=== PATIENT | female | born 1970 | race Caucasian/White ===

== ENCOUNTER 2019-11-09 08:38 | Inpatient (IN) | payer SELFPAY ==
[2019-11-09] VITALS (12 sets, daily range): BP systolic 89–118; BP diastolic 47–82
[~2019-11-09] VITALS: Ht 162.1 cm; Wt 68.0 kg
[2019-11-09] MEDS ORDERED: LORazepam INJ 2 MG/ML (ATIVAN) VIAL IM ONE (09:00)
[2019-11-09] MEDS ORDERED: OLANZapine 5 MG ODT (ZyPREXA ZYDIS) SL ONE (09:00)
[2019-11-09] MEDS ORDERED: NS IV 1000 ML 1,000 ML IV SCH ×2 (09:22→12:45)
[2019-11-09] MEDS ORDERED: LORazepam INJ 2 MG/ML (ATIVAN) VIAL IVP ONE ×2 (09:30→11:00)
[2019-11-09] MEDS ORDERED: ONDANSETRON 4 MG/2 ML (SDV) Z0FRAN IVP ONE (09:30)
--- NOTE | 2019-11-09 10:17 | Diagnostic Imaging Report ---
INDICATION: Meth use. TIME OF EXAM: 9:48 AM. COMPARISON: No prior studies are available for comparison. FINDINGS: The heart size is normal. The pulmonary vascularity is unremarkable. The lungs are clear. No infiltrate, effusion, or pneumothorax is detected. IMPRESSION: No acute cardiopulmonary process is detected. Dictated by: Dictated on workstation # [id number]
--- NOTE | 2019-11-09 10:26 | NUR ---
BLOOD RESENT LAB REPORTS NEVER GO DRAWN ON ADMIT
[2019-11-09 10:30] LABS: BASOPHILS % (AUTO) 0 % (0-10); EOSINOPHILS % (AUTO) 0 % (0-10); HEMATOCRIT 33 % (35-52); HEMOGLOBIN 11.1 G/DL (11.5-16.0); LYMPHOCYTES % (AUTO) 11 % (12-44); MEAN CORPUSCULAR HEMOGLOBIN 26 PG (25-34); MEAN CORPUSCULAR HGB CONC 34 G/DL (32-36); MEAN CORPUSCULAR VOLUME 77 FL (80-99); MEAN PLATELET VOLUME 10.4 FL (7.4-10.4); MONOCYTES # (AUTO) 2.4 X 10^3 (0.0-1.0); MONOCYTES % (AUTO) 13 % (0-12); NEUTROPHILS # (AUTO) 13.9 X 10^3 (1.8-7.8); NEUTROPHILS % (AUTO) 76 % (42-75); PLATELET COUNT 390 10^3/uL (130-400); RED CELL DISTRIBUTION WIDTH 14.7 % (10.0-14.5); WHITE BLOOD COUNT 18.3 10^3/uL (4.3-11.0)
--- NOTE | 2019-11-09 10:40 | NUR ---
PATIENT APPEARS TO BE RESTING HR DOWN TO 90'S
--- NOTE | 2019-11-09 10:42 | NUR ---
HOME MEDS KEEP AT DESK AND TILL ADMIT WILL SENT WITH PATIENT.
[2019-11-09 10:44] LABS: CHLORIDE 104 MMOL/L (98-107); POTASSIUM 3.7 MMOL/L (3.6-5.0); SODIUM 136 MMOL/L (135-145)
[2019-11-09 10:45] LABS: ALBUMIN 4.5 GM/DL (3.2-4.5)
[2019-11-09 10:46] LABS: CALCIUM 9.8 MG/DL (8.5-10.1)
[2019-11-09 10:47] LABS: GLUCOSE 92 MG/DL (70-105)
[2019-11-09 10:48] LABS: CARBON DIOXIDE 18 MMOL/L (21-32); TOTAL PROTEIN 7.5 GM/DL (6.4-8.2)
[2019-11-09 10:49] LABS: BILIRUBIN,TOTAL 0.8 MG/DL (0.1-1.0)
[2019-11-09 10:51] LABS: ALKALINE PHOSPHATASE 79 U/L (40-136); CREATININE SERUM 1.21 MG/DL (0.60-1.30); GFR ESTIMATED 48
[2019-11-09 10:52] LABS: BUN/CREATININE RATIO 26
[2019-11-09 10:53] LABS: ACETAMINOPHEN < 10 UG/ML (10-30)
[2019-11-09 10:54] LABS: ALANINE AMINOTRANSFERASE 41 U/L (0-55); CREATINE KINASE 1528 U/L (29-168); SALICYLATE < 5.0 MG/DL (5.0-20.0)
[2019-11-09 10:59] LABS: BAND NEUTROPHILS 0 %; BASOPHILS % (MANUAL) 1 %; EOSINOPHILS % (MANUAL) 0 %; LYMPHOCYTES % (MANUAL) 15 %; MICROCYTOSIS SLIGHT; MONOCYTES % (MANUAL) 2 %; NEUTROPHILS % (MANUAL) 82 %
[2019-11-09] MEDS ORDERED: LACTATED RINGERS 1,000 ML IV ONE (11:11)
--- NOTE | 2019-11-09 11:32 | NUR ---
PATIENT DISCONNECTED IV CRAWLED OUT OF BED AND FOUND WALKING NAKED IN ROOM
--- NOTE | 2019-11-09 12:03 | ED Psychosocial ---
General Chief Complaint: Substance Abuse Stated Complaint: PSYCH Nursing Triage Note: AMB TO ROOM 8 ACCCOMPIED BY EMS. EMS REPORT THAT [facility] WAS CALLED BY DAUGHTER BECAUSE PATIENT WAS TWEEKING. PATIENT REPORTS THAT SHE TOOK A LOT OF ADDERALL SEVERAL DAY'S AGO AND METH YESTERDAY PATIENT REPORTS IM TWEEKING. SAID HER BOYFRIEND KICKED HER OUT IN AND DROVE HERE HERE TO HER DAUGHTER'S Source: patient, EMS Exam Limitations: no limitations History of Present Illness Date Seen by Provider: Nov 09, 2019 Time Seen by Provider: 08:43 Initial Comments This 49-year-old woman is brought to the emergency room by EMS with suicidal ideation. She comments to me "I don't deserve for you to care for me. I don't deserve to live. I just want to ." She apparently was dropped off by a male hydroelectric production manager at her mother's house in the area and then EMS was activated there. Patient has rather extreme dystonic movements. She is a very poor historian and exam is very difficult due to her dystonic movements. She has generalized aching and complains of a very dry throat and mouth. She is afebrile. She admits to using "a lot" of Adderall recently and methamphetamine yesterday. She does not inject per her report. She presents a bag of numerous medications prescribed and filled in the [facility]. Allergies and Home Medications Allergies Coded Allergies: chlorzoxazone (Verified Allergy, Unknown, 11/09/19) cyclobenzaprine (Verified Allergy, Unknown, 11/09/19) Patient Home Medication List Home Medication List Reviewed: Yes Review of Systems Constitutional: see HPI EENTM: no symptoms reported Respiratory: no symptoms reported Cardiovascular: no symptoms reported Gastrointestinal: other (gagging) Genitourinary: no symptoms reported : No Musculoskeletal: see HPI Skin: other (scattered bruises and abrasions) Psychiatric/Neurological: See HPI Past Myqfzsl-Rndaji-Xbxwrl Hx Past Med/Social Hx: Reviewed Nursing Past Med/Soc Hx Patient Social History Alcohol Use: Denies Use Recreational Drug Use: Yes (METH ) Smoking Status: Current Everyday Smoker Recent Foreign Travel: No Contact w/Someone Who Travel: No Recent Infectious Disease Expo: No Past Medical History Surgeries: Yes Section Cardiac: Yes High Cholesterol, Hypertension Genitourinary: No Gastrointestinal: No Musculoskeletal: No Endocrine: No HEENT: No Cancer: No Psychosocial: Yes (polysubstance abuse) Physical Exam Vital Signs - First Documented 11/09/19 11/09/19 08:38 12:35 Temp 36.8 Pulse 110 Resp 24 B/P (MAP) 110/86 (94) Pulse Ox 94 O2 Delivery Room Air Capillary Refill : Less Than 3 Seconds Height, Weight, BMI Height: '" Weight: lbs. oz. kg; 25.00 BMI Method: General Appearance: WD/WN, moderate distress HEENT: PERRL/EOMI, other (mucous membranes somewhat dry) Neck: normal inspection Respiratory: lungs clear, normal breath sounds, no respiratory distress Cardiovascular: no edema, no murmur, tachycardia Gastrointestinal: soft; No distended Extremities: no pedal edema, other (scattered bruises and abrasions) Neurologic/Psychiatric: voice teacher II-XII nml as tested, alert, other (moves all 4 extremities equally. Severe dystonic movements from methamphetamines. Patient somewhat confused. Answer some questions appropriately but not others. She is cooperative to the extent she is able) Skin: warm/dry, ecchymosis, rash (folliculitis rash in the buttock region) Progress/Results/Core Measures Results/Orders Lab Results Laboratory Tests Test 11/09/19 10:24 Range/Units White Blood Count 18.3 H 4.3-11.0 10^3/uL Red Blood Count 4.29 L 4.35-5.85 10^6/uL Hemoglobin 11.1 L 11.5-16.0 G/DL Hematocrit 33 L 35-52 % Mean Corpuscular Volume 77 L 80-99 FL Mean Corpuscular Hemoglobin 26 25-34 PG Mean Corpuscular Hemoglobin Concent 34 32-36 G/DL Red Cell Distribution Width 14.7 H 10.0-14.5 % Platelet Count 390 130-400 10^3/uL Mean Platelet Volume 10.4 7.4-10.4 FL Neutrophils (%) (Auto) 76 H 42-75 % Lymphocytes (%) (Auto) 11 L 12-44 % Monocytes (%) (Auto) 13 H 0-12 % Eosinophils (%) (Auto) 0 0-10 % Basophils (%) (Auto) 0 0-10 % Neutrophils # (Auto) 13.9 H 1.8-7.8 X 10^3 Lymphocytes # (Auto) 2.0 1.0-4.0 X 10^3 Monocytes # (Auto) 2.4 H 0.0-1.0 X 10^3 Eosinophils # (Auto) 0.0 0.0-0.3 10^3/uL Basophils # (Auto) 0.0 0.0-0.1 10^3/uL Neutrophils % (Manual) 82 % Lymphocytes % (Manual) 15 % Monocytes % (Manual) 2 % Eosinophils % (Manual) 0 % Basophils % (Manual) 1 % Band Neutrophils 0 % Microcytosis SLIGHT Sodium Level 136 135-145 MMOL/L Potassium Level 3.7 3.6-5.0 MMOL/L Chloride Level 104 98-107 MMOL/L Carbon Dioxide Level 18 L 21-32 MMOL/L Anion Gap 14 5-14 MMOL/L Blood Urea Nitrogen 31 H 7-18 MG/DL Creatinine 1.21 0.60-1.30 MG/DL Estimat Glomerular Filtration Rate 48 BUN/Creatinine Ratio 26 Glucose Level 92 70-105 MG/DL Calcium Level 9.8 8.5-10.1 MG/DL Corrected Calcium 9.4 8.5-10.1 MG/DL Total Bilirubin 0.8 0.1-1.0 MG/DL Aspartate Amino Transf (AST/SGOT) 64 H 5-34 U/L Alanine Aminotransferase (ALT/SGPT) 41 0-55 U/L Alkaline Phosphatase 79 40-136 U/L Total Creatine Kinase 1528 H 29-168 U/L C-Reactive Protein High Sensitivity 2.58 H 0.00-0.50 MG/DL Total Protein 7.5 6.4-8.2 GM/DL Albumin 4.5 3.2-4.5 GM/DL TSH Mcleod Testing 0.47 0.35-4.94 UIU/ML Serum Test, Qualitative NEGATIVE NEGATIVE Salicylates Level < 5.0 L 5.0-20.0 MG/DL Acetaminophen Level < 10 L 10-30 UG/ML Serum Alcohol < 10 <10 MG/DL My Orders Orders - BRANDON SALAZAR MD Ua Culture If Indicated (11/09/19 08:56) Cbc With Automated Diff (11/09/19 08:56) Comprehensive Metabolic Panel (11/09/19 08:56) Alcohol (11/09/19 08:56) Acetaminophen (11/09/19 08:56) Salicylate (11/09/19 08:56) Ed Iv/Invasive Line Start (11/09/19 08:56) Thyroid Analyzer (11/09/19 08:56) Monitor-Rhythm Ecg Trace Only (11/09/19 08:56) Bh Status Checks/Observation Q15M (11/09/19 08:56) Ed Iv/Invasive Line Start (11/09/19 08:56) Creatine Kinase (11/09/19 08:56) Hcg,Qualitative Serum (11/09/19 08:56) Olanzapine Orally Dissolve Tab (Zyprexa (11/09/19 09:00) Lorazepam Injection (Ativan Injection) (11/09/19 09:00) Chest 1 View, Ap/Pa Only (11/09/19 09:21) Ondansetron Injection (Zofran Injectio (11/09/19 09:30) Ns Iv 1000 Ml (Sodium Chloride 0.9%) (11/09/19 09:22) Lorazepam Injection (Ativan Injection) (11/09/19 09:30) Manual Differential (11/09/19 10:24) Lorazepam Injection (Ativan Injection) (11/09/19 11:00) Lactated Ringers (Lr 1000 Ml Iv Solution (11/09/19 11:11) Hs C Reactive Protein (11/09/19 12:23) Medications Given in ED Current Medications Medications Dose Ordered Sig/Shwetha Route Start Time Stop Time Status Last Admin Dose Admin Lactated Ringer's 1,000 ml @ 0 mls/hr Q0M ONCE IV 11/09/19 11:11 11/09/19 11:12 DC 11/09/19 12:15 1,000 MLS/HR Lorazepam 1 mg ONCE ONCE IVP 11/09/19 09:30 11/09/19 09:31 DC 11/09/19 09:32 1 MG Lorazepam 1 mg ONCE ONCE IVP 11/09/19 11:00 11/09/19 11:01 DC 11/09/19 11:05 1 MG Olanzapine 5 mg ONCE ONCE SL 11/09/19 09:00 11/09/19 09:01 DC 11/09/19 09:05 5 MG Ondansetron HCl 8 mg ONCE ONCE IVP 11/09/19 09:30 11/09/19 09:31 DC 11/09/19 09:32 8 MG Vital Signs/I&O 11/09/19 11/09/19 11/09/19 11/09/19 08:38 11:53 12:15 12:35 Temp 36.8 Pulse 110 86 89 100 Resp 24 18 18 22 B/P (MAP) 110/86 (94) 98/56 (70) 91/55 118/82 (94) Pulse Ox 94 96 95 97 O2 Delivery Room Air Room Air Room Air Room Air 11/09/19 11/09/19 11/09/19 11/09/19 12:42 13:00 13:31 14:00 Pulse 88 92 81 Resp 18 18 B/P (MAP) 104/62 (76) 92/61 (71) Pulse Ox 98 100 98 O2 Delivery Room Air Room Air Room Air 11/09/19 11/09/19 11/09/19 11/09/19 15:00 15:59 16:00 16:01 Temp 36.8 Pulse 83 94 Resp 15 36 B/P (MAP) 108/67 (81) 93/60 (71) Pulse Ox 99 100 99 O2 Delivery Room Air Room Air Room Air 11/09/19 11/09/19 17:00 18:00 Pulse 87 85 Resp 16 11 B/P (MAP) 95/63 (74) 89/47 (61) Pulse Ox 97 96 O2 Delivery Room Air Room Air Blood Pressure Mean: 70 Progress Progress Note : Time: 11:50 Progress Note Assessment was difficult due to patient's dystonic movements. She was given Zyprexa 5 mg sublingually. IV was established and she was then given 2 different doses of Ativan 1 mg each. 2 L of IV fluid were ordered to treat the rhabdomyolysis. Patient needs to be admitted with close monitoring due to vieira icidal ideation and erratic behavior/movements. Dr. Montemayor excepts admission. Diagnostic Imaging Diagonstic Imaging: Xray Comments NAME: COLETTE QUAN [facility] REC#: [id number] PT STATUS: ADM IN : 1970 PHYSICIAN: BRANDON SALAZAR MD ADMIT DATE: 11/09/19/ICU Signed Date of Exam:11/09/19 CHEST 1 VIEW, AP/PA ONLY INDICATION: Meth use. TIME OF EXAM: 9:48 AM. COMPARISON: No prior studies are available for comparison. FINDINGS: The heart size is normal. The pulmonary vascularity is unremarkable. The lungs are clear. No infiltrate, effusion, or pneumothorax is detected. IMPRESSION: No acute cardiopulmonary process is detected. Dictated by: Dictated on workstation # [id number] Dict: 11/09/19 1015 Trans: 11/09/19 1544 [id number] Interpreted by: ERYN LUNSFORD MD Electronically signed by: ERYN LUNSFORD MD 11/09/19 1544 Departure Communication (Admissions) Time/Spoke to Admitting Phy: 11:50 Dr. Montemayor Impression Primary Impression: Suicidal ideation Additional Impressions: Rhabdomyolysis Qualified Codes: M62.82 - Rhabdomyolysis Methamphetamine abuse Disposition: 09 ADMITTED INPATIENT Condition: Improved Admissions Decision to Admit Reason: Admit from ER (General) Decision to Admit/Date: Nov 09, 2019 Time/Decision to Admit Time: 08:50 Departure-Patient Inst. Patient Instructions: ALCOHOL AND SUBSTANCE ABUSE BRANDON SALAZAR MD Nov 09, 2019 12:03
[2019-11-09] MEDS ORDERED: ONDANSETRON 4 MG/2 ML (SDV) Z0FRAN IV PRN ×2 (12:45→17:30)
--- OUTSIDE RECORDS SUMMARY | 2019-11-09 13:08 | XMS REPORT | Continuity of Care Document ---
Author Organization Unknown Address Unknown Phone Unavailable Allergies Active Description Code Type Severity Reaction Onset Reported/Identified Relationship to Patient Clinical Status Yes chlorzoxazone [id number] Moises g Allergy Unknown N/A 11/09/2019 Yes cyclobenzaprine [id number] D rug Allergy Unknown N/A 11/09/2019 Medications There is no data. Problems There is no data. Procedures There is no data. Results Test Result Range Complete blood count (CBC) with automate d white blood cell (WBC) differential - 11/09/19 10:24 Blood leukocytes automated count (number/volume) 18.3 10*3/uL 4.3-11.0 Blood erythrocytes automated count (number/volume) 4.29 10*6/uL 4.35-5.85 Venous blood hemoglobin measurement (mass/volume) 11.1 g/dL 11.5-16.0 Blood hematocrit (volume fraction) 33 % 35-52 Automated erythrocyte mean corpuscular volume 77 [ foz_us] 80-99 Automated erythrocyte mean corpuscular h emoglobin (mass per erythrocyte) 26 pg 25-34 Automated erythrocyte mean corpuscular h emoglobin concentration measurement (mass/volume) 34 g/dL 32-36 Automated erythrocyte distribution width ratio 14. 7 % 10.0- 14.5 Automated blood platelet count (count/volume) 390 10*3/uL 130-400 Automated blood platelet mean volume measurement 10.4 [foz_us] 7.4-10.4 Automated blood neutrophils/100 leukocytes 76 % 42-75 Automated blood lymphocytes/100 leukocytes 11 % 12-44 Blood monocytes/100 leukocytes 13 % 0-12 Automated blood eosinophils/100 leukocytes 0 % 0-10 Automated blood basophils/100 leukocytes 0 % 0-10 Blood neutrophils automated count (number/volume) 13.9 10*3 1.8-7.8 Blood lymphocytes automated count (number/volume) 2.0 10*3 1.0-4.0 Blood monocytes automated count (number/volume) 2. 4 10*3 0.0-1.0 Automated eosinophil count 0.0 10*3/uL 0 .0-0.3 Automated blood basophil count (count/volume) 0.0 10*3/uL 0.0-0.1 Serum or plasma choriogonadotropin (preg toni test) detection - 11/09/19 10:24 Serum or plasma choriogonadotropin ( test) de tection NEGATIVE NEGATIVE Comprehensive metabolic panel - 11/09/19 10:24 Serum or plasma sodium measurement (moles/volume) 136 mmol/L 135-145 Serum or plasma potassium measurement (moles/volume) 3.7 mmol/L 3.6-5.0 Serum or plasma chloride measurement (moles/volume) 104 mmol/L 98-107 Carbon dioxide 18 mmol/L 21-32 Serum or plasma anion gap determination (moles/volume) 14 mmol/L 5-14 Serum or plasma urea nitrogen measurement (mass/volume ) 31 mg/dL 7-18 Serum or plasma creatinine measurement (mass/volume) 1.21 mg/dL 0.60-1.30 Serum or plasma urea nitrogen/creatinine mass ratio 26 NRG Serum or plasma creatinine measurement w ith calculation of estimated glomerular filtration rate 48 NRG Serum or plasma glucose measurement (mass/volume) 92 mg/dL 70-105 Serum or plasma calcium measurement (mass/volume) 9.8 mg/dL 8.5-10.1 Serum or plasma total bilirubin measurement (mass/volu me) 0.8 mg/dL 0.1-1.0 Serum or plasma alkaline phosphatase bijan surement (enzymatic activity/volume) 79 U/L 40-136 Serum or plasma aspartate aminotransfera se measurement (enzymatic activity/volume) 64 U/L 5-34 Serum or plasma alanine aminotransferase measurement (enzymatic activity/volume) 41 U/L 0-55 Serum or plasma protein measurement (mass/volume) 7.5 g/dL 6.4-8.2 Serum or plasma albumin measurement (mass/volume) 4.5 g/dL 3.2-4.5 CALCIUM CORRECTED 9.4 mg/dL 8.5-10.1 Serum or plasma creatine kinase measurem ent (enzymatic activity/volume) - 11/09/19 10:24 Serum or plasma creatine kinase measurem ent (enzymatic activity/volume) 1528 U/L 29-168 Serum or plasma salicylates measurement (mass/volume) - 11/09/19 10:24 Serum or plasma salicylates measurement (mass/volume) < mg/dL 5.0-20.0 Serum or plasma acetaminophen measuremen t (mass/volume) - 11/09/19 10:24 Serum or plasma acetaminophen measurement (mass/volume ) < ug/mL 10-30 Serum or plasma ethanol measurement (mas s/volume) - 11/09/19 10:24 Serum or plasma ethanol measurement (mass/volume) < mg/dL <10 Manual absolute plasma cell count - 10/30 10:24 Blood monocytes/100 leukocytes 2 % NRG Manual blood segmented neutrophils/100 leukocytes 82 % NRG Blood band neutrophils/100 leukocytes 0 % NRG Manual blood lymphocytes/100 leukocytes 15 % NRG Manual eosinophils/100 leukocytes in nose 0 % NRG Manual blood basophils/100 leukocytes 1 % NRG Blood microcytes detection by light microscopy SLI GHT NRG Serum or plasma thyrotropin measurement by detection limit <=0.05 miu/l (units/volume) - 11/09/19 10:24 Serum or plasma thyrotropin measurement by detection limit <=0.05 miu/l (units/volume) 0.47 u[iU]/mL 0.35-4.94 Serum or plasma C reactive protein measu rement (mass/volume) - 11/09/19 10:24 Serum or plasma C reactive protein measurement (mass/v olume) 2.58 mg/dL 0.00-0.50 Encounters ACCT No. Visit Date/Time Discharge Status Pt. Type Provider Facility Loc./Unit Complaint [id number] 11/09/2019 12:07:[address] Inpatient ALESSANDRO ELDER, AGUSTIN Saldaña [facility] ICU SUICIDAL IDEATION;RHABDOMYOLYSIS;METHAMPHETAMINE-
[2019-11-09] MEDS ORDERED: CATHETER FLUSH 10 ML SYR IV PRN ×2 (13:45→17:45)
[2019-11-09] MEDS: LORazepam INJ 2 MG/ML (ATIVAN) VIAL IV PRN ×2 (14:36→16:46)
[2019-11-09] MEDS ORDERED: ENOXAPARIN 40 MG/0.4 ML (LOVENOX) SYR SC SCH (17:30)
[2019-11-09] MEDS ORDERED: BISACODYL 10 MG SUPP (DULCOLAX) PR PRN (17:30)
[2019-11-09] MEDS ORDERED: MELATONIN 3 MG TABLET PO PRN (17:30)
[2019-11-09] MEDS ORDERED: ACETAMINOPHEN 325 MG TABLET PO PRN (17:30)
[2019-11-09] MEDS ORDERED: ONDANSETRON 4 MG (ZOFRAN) ORAL DISSOLVE TAB PO PRN (17:30)
[2019-11-09] MEDS ORDERED: diphenhydrAMINE 25 MG TAB (BENADRYL) PO PRN (17:30)
[2019-11-09] MEDS ORDERED: ANTACID SUSP 30 ML UDC (MYLANTA) PO PRN (17:30)
[2019-11-09] MEDS ORDERED: polyethylene glycoL POWDER 17 GM (MIRALAX) PACK PO PRN (17:30)
[2019-11-09] MEDS: NS IV 1000 ML 1,000 ML IV SCH (18:13)
--- NOTE | 2019-11-09 20:29 | History & Physical-Hospitalist ---
History of Present Illness HPI/Chief Complaint Jeni Chou is a 49 year old female who presented with altered mental status. She had reportedly been dropped off at her daughters house by a friend. Her daughter subsequently called police because she was "tweeking". Upon arrival she was making statements of wanting to harm herself. She was also very restless with dystonic movements. She is a poor historian due to her clinical state. She denies any pain. She denies trouble breathing. She denies fevers and chills. She denies nausea and vomiting. Source: patient, RN/MD, EMS Exam Limitations: clinical condition Date Seen 11/09/19 Time Seen by a Provider: 16:30 Attending Physician Aleisha Francois MD PCP Referring Physician Date of Admission Nov 09, 2019 at 12:07 Home Medications & Allergies Home Medications Reviewed patient Home Medication Reconciliation performed by pharmacy medication reconciliations certification technician and/or nursing. Patients Allergies have been reviewed. Allergies Allergies Coded Allergies chlorzoxazone (Verified Allergy, Unknown, 11/09/19) cyclobenzaprine (Verified Allergy, Unknown, 11/09/19) Past Nernvzu-Bjaiyo-Ygnafg Hx Past Med/Social Hx: Reviewed Nursing Past Med/Soc Hx Patient Social History Alcohol Use: Denies Use Recreational Drug Use: Yes (METH ) Smoking Status: Current Everyday Smoker Recent Foreign Travel: No Contact w/other who traveled: No Recent Infectious Disease Expo: No Past Medical History Surgeries: Section Cardiac: High Cholesterol, Hypertension Review of Systems Constitutional: no symptoms reported EENTM: no symptoms reported Respiratory: no symptoms reported Cardiovascular: no symptoms reported Gastrointestinal: no symptoms reported Genitourinary: no symptoms reported Musculoskeletal: no symptoms reported Skin: no symptoms reported Psychiatric/Neurological: No Symptoms Reported Physical Exam Physical Exam Vital Signs Vital Signs - First Documented 11/09/19 11/09/19 08:38 12:35 Temp 36.8 Pulse 110 Resp 24 B/P (MAP) 110/86 (94) Pulse Ox 94 O2 Delivery Room Air Capillary Refill : Less Than 3 Seconds Height, Weight, BMI Height: '" Weight: lbs. oz. kg; 25.00 BMI Method: General Appearance: Anxious, Mild Distress HEENT: Moist Mucous Membranes Neck: Normal Inspection, Supple Respiratory: Lungs Clear, Normal Breath Sounds, No Respiratory Distress Cardiovascular: Regular Rate, Rhythm, No Edema, No Murmur Gastrointestinal: Normal Bowel Sounds, Non Tender, Soft Extremity: Normal Inspection, Non Tender Neurologic/Psychiatric: Alert, Oriented x3, No Motor/Sensory Deficits, Normal Mood/Affect Skin: Warm/Dry, Rash Results Results/Procedures Labs Laboratory Tests 11/09/19 10:24 Patient resulted labs reviewed. Imaging: Reviewed Imaging Report Assessment/Plan Admission Diagnosis Acute methamphetamine intoxication Admission Status: Inpatient Order (span 2 midnights) Reason for Inpatient Admission: Meth intoxication with suicidal ideation Assessment and Plan Acute methamphetamine intoxcation Rhabdomyolysis Suicidal ideation -UDS pending -Ativan as needed -Consider Precedex gtt if needed -IV fluids -Telesitter ordered -Suicide precautions -Repeat CK tomorrow morning DVT Prophylaxis: Lovenox Diagnosis/Problems Diagnosis/Problems (1) Methamphetamine abuse Status: Acute (2) Rhabdomyolysis Status: Acute Qualifiers: Rhabdomyolysis type: non-traumatic Qualified Codes: M62.82 - Rhabdomyolysis (3) Suicidal ideation Status: Acute Clinical Quality Measures DVT/VTE Risk/Contraindication: Risk Factor Score Per Nursin RFS Level Per Nursing on Admit: 2=Moderate ALEISHA FRANCOIS MD Nov 09, 2019 20:29
[2019-11-09] MEDS: SENNOSIDES 8.6 MG (SENOKOT) TAB PO SCH (21:00)
[2019-11-09] MEDS: DOCUSATE SODIUM 100 MG (COLACE) CAP PO SCH (21:00)
[2019-11-10] VITALS: BP 90/45
[2019-11-10] MEDS: NS IV 1000 ML 1,000 ML IV SCH ×4 (00:11→14:13)
[2019-11-10 00:57] LABS: CLARITY,URINE CLOUDY; GLUCOSE, URINE (UA) NEGATIVE (NEGATIVE); KETONES,URINE 1+ (NEGATIVE); LEUKOCYTE ESTERASE ,URINE NEGATIVE (NEGATIVE); NITRITE,URINE NEGATIVE (NEGATIVE); PROTEIN,URINE TRACE (NEGATIVE)
[2019-11-10 01:06] LABS: BILIRUBIN,URINE 1+ (NEGATIVE)
[2019-11-10 01:07] LABS: BACTERIA,URINE TRACE /HPF; RBC,URINE 0-2 /HPF; WBC,URINE 0-2 /HPF
[2019-11-10 01:09] LABS: COLOR,URINE AMBER
[2019-11-10 01:11] LABS: AMPHETAMINE SCREEN, URINE POSITIVE (NEGATIVE); BARBITURATE SCREEN URINE NEGATIVE (NEGATIVE); BENZODIAZEPINES SCREEN URINE POSITIVE (NEGATIVE); CANNABINOID SCREEN, URINE POSITIVE (NEGATIVE); COCAINE SCREEN URINE NEGATIVE (NEGATIVE); METHADONE STAT NEGATIVE (NEGATIVE); METHAMPHETAMINE SCREEN URINE S POSITIVE (NEGATIVE); OPIATE SCREEN URINE NEGATIVE (NEGATIVE); OXYCODONE STAT NEGATIVE (NEGATIVE); PROPOXYPHENE STAT NEGATIVE (NEGATIVE); TRICYCLIC ANTIDEPRESSANTS SCRE NEGATIVE (NEGATIVE)
[2019-11-10 03:26] LABS: BASOPHILS % (AUTO) 0 % (0-10); EOSINOPHILS # (AUTO) 0.1 10^3/uL (0.0-0.3); EOSINOPHILS % (AUTO) 1 % (0-10); HEMATOCRIT 28 % (35-52); HEMOGLOBIN 9.4 G/DL (11.5-16.0); LYMPHOCYTES # (AUTO) 1.8 X 10^3 (1.0-4.0); LYMPHOCYTES % (AUTO) 21 % (12-44); MEAN CORPUSCULAR HEMOGLOBIN 26 PG (25-34); MEAN CORPUSCULAR HGB CONC 33 G/DL (32-36); MEAN CORPUSCULAR VOLUME 79 FL (80-99); MEAN PLATELET VOLUME 10.6 FL (7.4-10.4); MONOCYTES % (AUTO) 11 % (0-12); NEUTROPHILS # (AUTO) 5.6 X 10^3 (1.8-7.8); NEUTROPHILS % (AUTO) 66 % (42-75); PLATELET COUNT 276 10^3/uL (130-400); RED CELL DISTRIBUTION WIDTH 14.7 % (10.0-14.5); WHITE BLOOD COUNT 8.5 10^3/uL (4.3-11.0)
[2019-11-10 03:47] LABS: BUN/CREATININE RATIO 26; CARBON DIOXIDE 17 MMOL/L (21-32); CHLORIDE 113 MMOL/L (98-107); CREATINE KINASE 851 U/L (29-168); CREATININE SERUM 0.74 MG/DL (0.60-1.30); GFR ESTIMATED > 60; GLUCOSE 73 MG/DL (70-105); MAGNESIUM 1.9 MG/DL (1.6-2.4); POTASSIUM 3.5 MMOL/L (3.6-5.0); SODIUM 140 MMOL/L (135-145)
[2019-11-10 04:00] VITALS: BP 105/61
[2019-11-10] MEDS: LORazepam INJ 2 MG/ML (ATIVAN) VIAL IVP PRN ×2 (05:46→09:37)
[2019-11-10 07:36] VITALS: BP 135/75
[2019-11-10] MEDS: SENNOSIDES 8.6 MG (SENOKOT) TAB PO SCH (09:38)
[2019-11-10] MEDS: DOCUSATE SODIUM 100 MG (COLACE) CAP PO SCH (09:38)
--- NOTE | 2019-11-10 11:50 | Progress Note - Hospitalist ---
Subjective HPI/CC On Admission Date Seen by Provider: Nov 10, 2019 Time Seen by Provider: 09:00 Jeni Chou is a 49 year old female who presented with altered mental status. She had reportedly been dropped off at her daughters house by a friend. Her daughter subsequently called police because she was "tweeking". Upon arrival she was making statements of wanting to harm herself. She was also very restless with dystonic movements. She is a poor historian due to her clinical state. She denies any pain. She denies trouble breathing. She denies fevers and chills. She denies nausea and vomiting. Subjective/Events-last exam She is still fatigued. She says that she overdosed on Adderall intentionally. She also admits to using methamphetamine. She says that she was trying to harm herself. She denies any suicidal ideation at this time. She denies any pain. She denies any shortness of breath. She denies any fevers or chills. She denies any abdominal pain, nausea, or vomiting. Objective Exam Vital Signs Vital Signs Date Time Temp Pulse Resp B/P (MAP) Pulse Ox O2 Delivery O2 Flow Rate FiO2 11/10/19 08:00 Room Air 11/10/19 07:36 37.0 89 18 135/75 (95) 94 Capillary Refill : Less Than 3 Seconds General Appearance: No Apparent Distress, Chronically ill Respiratory: Lungs Clear, Normal Breath Sounds, No Respiratory Distress Cardiovascular: Regular Rate, Rhythm, No Edema, No Murmur Gastrointestinal: Normal Bowel Sounds, Non Tender, Soft Extremity: Normal Inspection, Non Tender, No Pedal Edema Neurologic/Psychiatric: Alert, No Motor/Sensory Deficits, Normal Mood/Affect Skin: Normal Color, Warm/Dry Results/Procedures Lab Laboratory Tests 11/10/19 03:00 11/10/19 03:05 Patient resulted labs reviewed. Imaging: Reviewed Imaging Report Assessment/Plan Assessment and Plan Assess & Plan/Chief Complaint Acute methamphetamine intoxcation Suicidal ideation -UDS positive for amphetamines, benzodiazepines, cannabinoids -Ativan as needed -IV fluids -Telesitter -Suicide precautions -Social work consulted, appreciate assistance -Evaluate for inpatient psychiatry DVT Prophylaxis: Lovenox Rhabdomyolysis, resolved Diagnosis/Problems Diagnosis/Problems (1) Methamphetamine abuse Status: Acute (2) Rhabdomyolysis Status: Resolved Qualifiers: Rhabdomyolysis type: non-traumatic Qualified Codes: M62.82 - Rhabdomyolysis Resolution Date/Time: 11/10/19 @ 11:51 (3) Suicidal ideation Status: Acute Clinical Quality Measures DVT/VTE Risk/Contraindication: Risk Factor Score Per Nursin RFS Level Per Nursing on Admit: 2=Moderate AGUSTIN FRANCOIS MD Nov 10, 2019 11:50
[2019-11-10 12:00] VITALS: BP 90/58
--- NOTE | 2019-11-10 14:31 | NUR ---
TITI visited with the patient for social service consult. Plan: The patient will return home with her daughter Lizy. TITI attempted to visit with the patient this a.m.; however, the patient would not wake for this ss. TITI attempted later and was successful in visiting with her. She states that last night she took approximately 12 to 13 Adderall in an attempted to kill herself. The patient states that she was suicidal yesterday/last night. The patient denies any suicidal ideation today. She reports that she does not want to kill or hurt herself today. The patient then reported she does have some feelings of depression. [facility] who states she does not need to be screened due to her not having suicidal ideation and would be willing for treatment if needed. TITI contacted [facility] to discuss qualifications for inpatient psych. She stated that if a patient is not actively suicidal it is challenging to get them in. The patient is ready to go home with daughter. The patient is currently unemployed but she is receiving child support $91 twice a month. She also is set up on Medicaid [employer]. The patient does not have her wallet or phone for this ss to scan copy. The patient states that she does have a good support system in place with her 2 daughters and sister. This ss asked how old the patient was and if she was in the home. She stated yes, and that her daughter was 12 years old. This ss informed her that TITI is a [employer] and will be making a online DCF report. The patient verbalized understanding. The patient states that she does wish to seek services for drug and alcohol treatment. The patient states she just had a telehealth visit from a office in [place] called Kimberly Molina. However, she reports that she is set up with mental health therapy through [facility]. Her appointment is scheduled for this Thursday. She is unsure of who she sees there. TITI discussed with her the outpatient treatment program through the [facility]. She verbalized understanding.
--- NOTE | 2019-11-11 10:52 | NUR ---
[facility] contacted patient for follow up. [facility] contacted the patient for follow up. She reports she is doing well today. She did not have any concerns or needs. [facility] made a DCF report due to patients drug use with minor in the home the ID intake number is [id number].
--- NOTE | 2019-11-13 12:27 | Discharge Summary ---
Discharge Summary Hospital Course Was the Problem List Reviewed?: Yes Problems/Dx: (1) Methamphetamine abuse Status: Acute (2) Rhabdomyolysis Status: Resolved Qualifiers: Qualified Codes: M62.82 - Rhabdomyolysis (3) Suicidal ideation Status: Acute Hospital Course Date of Admission: Nov 09, 2019 at 12:07 Admission Diagnosis : Acute methamphetamine intoxication Family Physician/Provider: Date of Discharge: 11/13/19 Discharge Diagnosis: Acute methamphetamine intoxication Hospital Course: Jeni Chou is a 49-year-old female who was admitted with acute methamphetamine intoxication. She reported that she also overdosed on Adderall intentionally. After she recovered from her intoxication, her suicidal ideation resolved. The [facility] did not evaluate her since she was not having any active suicidal ideation. We reached out to [facility] for possible inpatient admission, but due to her not being actively suicidal they declined. She had an elevated CK level likely due to her methamphetamine use on arrival and her mild rhabdomyolysis resolved with IV fluids. She was discharged home in stable condition. She should follow-up with her primary care physician. Labs and Pending Lab Test: Microbiology 11/09/19 MRSA Screen - Final, Complete MRSA not isolated Home Meds Active No Active Prescriptions or Reported Medications Assessment/Pt Instructions Take medications as prescribed. Follow-up with your primary care physician. Discharge Planning: <30 minutes discharge planning Discharge Instructions Discharge Diet: No Restrictions Activity as Tolerated: Yes Pneumonia Vaccine Order Indica: Yes Discharge Physical Examination Vital Signs Vital Signs Date Time Temp Pulse Resp B/P (MAP) Pulse Ox O2 Delivery O2 Flow Rate FiO2 11/10/19 12:13 Room Air 11/10/19 12:00 90/58 (69) 11/10/19 07:36 37.0 89 18 94 General Appearance: No Apparent Distress, Chronically ill Respiratory: Lungs Clear, Normal Breath Sounds, No Respiratory Distress Cardiovascular: Regular Rate, Rhythm, No Edema, No Murmur Gastrointestinal: Normal Bowel Sounds, Non Tender, Soft Extremity: Normal Inspection, Non Tender, Pedal Edema Skin: Normal Color, Warm/Dry Neurologic/Psychiatric: Alert, No Motor/Sensory Deficits Allergies: Coded Allergies: chlorzoxazone (Verified Allergy, Unknown, 11/09/19) cyclobenzaprine (Verified Allergy, Unknown, 11/09/19) Discharge Summary Date of Admission Nov 09, 2019 at 12:07 Date of Discharge Nov 10, 2019 at 15:45 Discharge Date: Nov 10, 2019 Discharge Time: 15:45 Admission Diagnosis Acute methamphetamine intoxication Discharge Diagnosis Acute methamphetamine intoxcation (1) Methamphetamine abuse Status: Acute (2) Rhabdomyolysis Status: Resolved Qualifiers: Qualified Codes: M62.82 - Rhabdomyolysis (3) Suicidal ideation Status: Acute Clinical Quality Measures DVT/VTE Risk/Contraindication: Risk Factor Score Per Nursin RFS Level Per Nursing on Admit: 2=Moderate AGUSTIN FRANCOIS MD Nov 13, 2019 12:27
== END 2019-11-10 15:45 | disposition home or self-care (01) | DRG 558 ==
LOC: ER 08:43 → ICU 12:07
PROVIDERS: ADMIT Internal Medicine; ATTEND Internal Medicine
DX: M62.82 Rhabdomyolysis (principal); F15.129 Other stimulant abuse with intoxication, unspecified; R45.851 Suicidal ideations; R25.8 Other abnormal involuntary movements; F17.200 Nicotine dependence, unspecified, uncomplicated; E78.00 Pure hypercholesterolemia, unspecified; I10 Essential (primary) hypertension; L73.9 Follicular disorder, unspecified
CPT/HCPCS: 36415; 71045; 80048; 80053; 80306; 80320; 80329; 81000; 82550; 83735; 84443; 84703; 85007; 85025; 85027; 86141; 87081; 93041; 96361; 96374; 96375; 96376